=== PATIENT | female | born 1960 | race Hispanic/Latino ===

== ENCOUNTER 2018-12-11 21:45 | Emergency (ER) | payer SELFPAY ==
[2018-12-11] MEDS ORDERED: NITROGLYCERIN 0.4 MG 25 EA TAB SL PRN (22:03)
[2018-12-11] MEDS ORDERED: ASPIRIN (ENTERIC COATED) 81 MG TAB PO ONE (22:07)
[2018-12-11] MEDS ORDERED: ASPIRIN (CHEWABLE) 81 MG TAB ONE (22:08)
--- NOTE | 2018-12-11 22:08 | ED.PDOC ---
History of Present Illness - General Chief Complaint: Chest Pain/IA Stated Complaint: chest pain Time Seen by Provider: 12/11/18 21:51 - History of Present Illness Initial Comments: 58 Y/O FEMALE, C/O CP. STARTED TONIGHT APPROX 1999, WAS PICKING UP WEED, AND WHEN SHE STOOD UP FELT CP, MID STERNAL, CONSTANT, MODERATE, WORSE WITH BREATHING AND MOVEMENT. MADE HER A LITTLE NAUSEOUS. PAIN IS SL BETTER NOW. 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 DENIES SOB, FEVER, COUGH, ABD PAIN, N/V/D, PEDAL EDEMA. Allergies/Adverse Reactions: Allergies NO KNOWN ALLERGY Allergy (Verified 03/29/14 17:55) Home Medications: Ambulatory Orders Cetirizine HCl [Zyrtec] 10 mg PO DAILY 03/29/14 Levothyroxine Sodium [Synthroid] 0.125 mg PO 0700 03/29/14 Metoprolol Succinate [Metoprolol Succinate ER] 100 mg PO DAILY 03/29/14 Montelukast [Singulair] 10 mg PO DAILY 03/29/14 Aspirin [Aspirin Adult Low Dose] 81 mg PO DAILY 12/11/18 Meloxicam [Mobic] 15 mg PO DAILY 15 Days #15 tab 12/12/18 Review of Systems - Review of Systems Constitutional: Denies: chills, diaphoresis, fever EENTM: States: no symptoms reported Respiratory: States: no symptoms reported. Denies: cough, orthopnea, short of breath, stridor Cardiology: States: chest pain. Denies: edema, palpitations, syncope Gastrointestinal/Abdominal: States: nausea. Denies: abdominal pain, constipation, diarrhea, vomiting Genitourinary: States: no symptoms reported Musculoskeletal: States: no symptoms reported Skin: States: no symptoms reported Neurological: States: no symptoms reported Endocrine: States: no symptoms reported Past Medical History (General) - Patient Medical History Hx Seizures: No Hx Stroke: No Hx Dementia: No Hx Asthma: Yes Hx of COPD: No Hx Cardiac Disorders: No Hx Congestive Heart Failure: No Hx Pacemaker: No Hx Hypertension: Yes Hx Thyroid Disease: Yes Hx Diabetes: No Hx Gastroesophageal Reflux: No Hx Renal Disease: No Hx Cancer: No Hx of HIV: No Hx Hepatitis C: No Hx MRSA: No Hx Other - free text: HYPERLIPIDEMIA Surgical History: appendectomy, Hysterectomy - Vaccination History Hx Tetanus, Diphtheria Vaccination: No Hx Influenza Vaccination: No Hx Pneumococcal Vaccination: No - Social History Hx Tobacco Use: No Hx Chewing Tobacco Use: No Hx Alcohol Use: No Hx Substance Use: No Hx Substance Use Treatment: No Hx Depression: No Hx Physical Abuse: No Hx Emotional Abuse: No Hx Suspected Abuse: No - Female History Patient is a Female of Child Bearing Age (10 -59 yrs old): No Patient : No Family Medical History - Family History Mother Living Status: Still Living Hx Family Diabetes: Yes Hx Family;Other: CAD Grandparents Living Status: Hx Cardiac Disease: Yes Hx Family Cancer: Yes Physical Exam - Physical Exam General Appearance: Alert, Comfortable Eye Exam: bilateral normal - GEORGINA, EOMI Ears, Nose, Throat: normal ENT inspection, normal pharynx Respiratory: lungs clear, normal breath sounds, no respiratory distress, other - MID STERNAL TENDERNESS TO PALPATION THAT REPRODUCES CP Cardiovascular/Chest: normal peripheral pulses, regular rate, rhythm, no edema, no gallop, no JVD, no murmur Gastrointestinal/Abdominal: normal bowel sounds, non tender, soft, no organomegaly, no pulsatile mass Back Exam: normal inspection, no CVA tenderness Extremity: normal range of motion, non-tender, normal inspection, no pedal edema 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 TORADOL WAS GIVEN, PT FEELS MUCH BETTER. ADMISSION FOR OBSERVATION WAS OFFERED, EXPLAINED LIMITATIONS OF THE WORK UP DONE IN ER, PT WANTS TO GO HOME. WILL F/U WITH PCP. 12/12/18 00:41 12/11/18 22:03 Nitroglycerin 0.4 mg Tab [Nitrostat] 1 ea SL Q5MIN PRN 12/11/18 22:15 EKG STAT 12/12/18 00:37 CTA Chest [CT] Stat 12/12/18 01:00 Nitroglycerin/D5w IV 50,000 mcg Premix Bottle 1 bottle IVS PRN Laboratory Results - last 24 hr 12/11/18 12/11/18 12/11/18 22:14 22:14 22:14 WBC 9.6 RBC 5.02 Hgb 14.4 Hct 43.3 MCV 86.2 MCH 28.7 MCHC 33.3 RDW 12.9 Plt Count 223 MPV 8.5 Absolute Neuts (auto) 5.50 Absolute Lymphs (auto) 3.00 Absolute Monos (auto) 0.90 H Absolute Eos (auto) 0.30 Absolute Basos (auto) 0.00 Neutrophils % 56.6 Lymphocytes % 31.4 Monocytes % 8.8 Eosinophils % 2.7 Basophils % 0.5 D-Dimer, Quantitative 0.53 H* Sodium 141 Potassium 3.4 L Chloride 105 Carbon Dioxide 25 Anion Gap 14.4 BUN 20 H Creatinine 0.74 BUN/Creatinine Ratio 27.0 H Random Glucose 104 Serum Osmolality 284.2 Calcium 9.3 Total Bilirubin 0.7 AST 18 ALT 28 Alkaline Phosphatase 108 Creatine Kinase 84 CK-MB (CK-2) 1.1 CK-MB (CK-2) % Not Reportable Troponin I < 0.02 B-Natriuretic Peptide 15.5 Serum Total Protein 8.1 Albumin 4.5 Globulin 3.6 H Albumin/Globulin Ratio 1.3 - EKG/XRAY/CT Comments: NSR 71X', AQRS: 17, QTc 445, NO STT CHANGES. Xray Comments: CXR: NAF CT Interpretation Call Back: Yes - CTA CHEST: (+) SMALL HIATAL HERNIA, NO PE, NO DYSECTION. Departure - Departure Clinical Impression: Chest wall pain, Essential hypertension Disposition: Discharge to Home or Self Care Condition: Good Departure Forms: ED Discharge - Pt. Copy, Patient Portal Self Enrollment Instructions: DI for Chest Pain Diet: resume usual diet, low salt diet Prescriptions: Meloxicam [Mobic] 15 mg PO DAILY 15 Days #15 tab Home Medications: Ambulatory Orders Cetirizine HCl [Zyrtec] 10 mg PO DAILY 03/29/14 Levothyroxine Sodium [Synthroid] 0.125 mg PO 0700 03/29/14 Metoprolol Succinate [Metoprolol Succinate ER] 100 mg PO DAILY 03/29/14 Montelukast [Singulair] 10 mg PO DAILY 03/29/14 Aspirin [Aspirin Adult Low Dose] 81 mg PO DAILY 12/11/18 Meloxicam [Mobic] 15 mg PO DAILY 15 Days #15 tab 12/12/18
--- NOTE | 2018-12-11 22:27 | RAD ---
EXAM DESCRIPTION: Chest,1 View CLINICAL HISTORY: 58 years Female CHEST PAIN COMPARISON: None TECHNIQUE: AP view of the chest was obtained. FINDINGS: Cardiac size is within normal limits. Central vessels are not increased. No infiltrates or effusions seen. No consolidation. No pneumothorax. IMPRESSION: No active disease. Electronically signed by: Nelli Wiggins MD 12/11/2018 10:25 PM CDT
[2018-12-11] MEDS ORDERED: KETOROLAC TROMETHAMINE INJ 30 MG/ML VIAL IV ONE (22:56)
--- NOTE | 2018-12-11 23:42 | CT ---
EXAM DESCRIPTION: CTA Chest CLINICAL HISTORY: 58 years Female CHEST PAIN, ELEVATED D DIMER COMPARISON: Radiograph of the chest performed on the same day. TECHNIQUE: Images were obtained in axial, sagittal, and coronal planes. Coronal oblique images also obtained. Intravenous contrast was administered. This exam was performed according to our departmental dose-optimization program which includes use of Automated Exposure Control, adjustment of the mA and/or kV according to patient size and/or use of iterative reconstruction technique. FINDINGS: No filling defects pulmonary arteries bilaterally. No aortic dissection or dilatation. No adenopathy. No pericardial or pleural effusions. No adenopathy. No pneumothorax. No lung parenchymal infiltrates or nodules seen. No acute osseous abnormality. Moderate degenerative change thoracic spine. Small hiatal hernia. Surgical clips epigastric region and proximal stomach. Suspected fatty change involving the liver. IMPRESSION: No evidence for pulmonary embolus. No aortic dissection or dilatation. No infiltrate seen. Electronically signed by: Nelli Wiggins MD 12/11/2018 11:40 PM CDT
[2018-12-12] MEDS ORDERED: NITROGLYCERIN/D5W IV 50,000 MCG in PREMIX BOTTLE 1 BOTTLE IVS SCH (01:00)
[2018-12-12 01:15] VITALS: BP 125/65; TEMP 98.5; O2SAT 97
== END 2018-12-12 01:18 | disposition home or self-care (01) ==
LOC: ER 21:45
DX: R07.1 Chest pain on breathing (principal); I10 Essential (primary) hypertension; R11.0 Nausea; K44.9 Diaphragmatic hernia without obstruction or gangrene; J45.909 Unspecified asthma, uncomplicated; E07.9 Disorder of thyroid, unspecified; E78.5 Hyperlipidemia, unspecified
CPT/HCPCS: 36415; 71045; 71275; 80053; 82550; 82553; 83880; 84484; 85025; 85379; 93005; J1885

== ENCOUNTER 2020-09-05 22:45 | Emergency (ER) | payer BC, SELFPAY ==
[2020-09-05] MEDS ORDERED: ONDANSETRON INJ 4 MG/2 ML VIAL IV ONE (22:56)
[2020-09-05] MEDS ORDERED: SODIUM CHLORIDE 0.9% 1000ML 1,000 ML IVS ONE (22:56)
[2020-09-05] MEDS ORDERED: ALUM & MAG HYDROX-SIMETHICONE 30 ML, LIDOCAINE VISCOUS 2% 15 ML PO ONE ×2 (22:56)
--- NOTE | 2020-09-05 22:59 | ED.PDOC ---
History of Present Illness - General Time Seen by Provider: 09/05/20 22:46 Information Source: patient, RN notes reviewed, Vital Signs reviewed, old records Exam Limitations: no limitations - History of Present Illness Initial Comments: 60 yo F with hx HTN and HLD comes in with 4 days of abdominal discomfort, nausea and bloating. States symptoms seem worse at night. Did feel like a PPI helped on day one. States she is burping a lot. Pain got much worse tonight so came in for evaluation. no chest pain, shortness of breath. denies fever. no black orbloody bm. no diarrhea or constipation. Still has gallbladder. Prior abd surgeries include appendix and partial hysterectomy. Abdominal Pain Onset Location: RUQ, epigastric Pain Radiation: no radiation Quality: moderate, cramping Timing/Duration: days, intermittent Improving Factors: other - emesis Associated Symptoms: heartburn, nausea/vomiting Review of Systems - Review of Systems Constitutional: States: malaise. Denies: chills, fever EENTM: Denies: mouth pain Respiratory: Denies: cough, short of breath Cardiology: Denies: chest pain Gastrointestinal/Abdominal: States: abdominal pain, nausea. Denies: constipation, diarrhea Genitourinary: States: other - notice urine is darker than normal. . Denies: dysuria Musculoskeletal: Denies: back pain, muscle pain Skin: Denies: rash Neurological: Denies: numbness, paresthesia, weakness Endocrine: Denies: unexplained weight loss Past Medical History (General) - Patient Medical History Hx Seizures: No Hx Stroke: No Hx Dementia: No Hx Asthma: Yes Hx of COPD: No Hx Cardiac Disorders: No Hx Congestive Heart Failure: No Hx Pacemaker: No Hx Hypertension: Yes Hx Thyroid Disease: Yes Hx Diabetes: No Hx Gastroesophageal Reflux: No Hx Renal Disease: No Hx Cancer: No Hx of HIV: No Hx Hepatitis C: No Hx MRSA: No Surgical History: appendectomy, gastric bypass, other - partial hysterectomy - Vaccination History Hx Tetanus, Diphtheria Vaccination: No Hx Influenza Vaccination: No Hx Pneumococcal Vaccination: No - Social History Hx Tobacco Use: No Hx Chewing Tobacco Use: No Hx Alcohol Use: No Hx Substance Use: No Hx Substance Use Treatment: No Hx Depression: No Hx Physical Abuse: No Hx Emotional Abuse: No Hx Suspected Abuse: No - Female History Patient : No Family Medical History - Family History Mother Living Status: Still Living Hx Family Diabetes: Yes Hx Family;Other: CAD Grandparents Living Status: Hx Cardiac Disease: Yes Hx Family Cancer: Yes Physical Exam - Physical Exam General Appearance: Alert, Comfortable, No apparent distress, Well Developed, Well Groomed, Well Hydrated, Well Nourished Eyes, Ears, Nose, Throat Exam: normal ENT inspection Neck: non-tender, full range of motion, supple, normal inspection Respiratory: chest non-tender, lungs clear, normal breath sounds, no respiratory distress, no accessory muscle use Cardiovascular/Chest: normal peripheral pulses, regular rate, rhythm, no edema, no gallop, no JVD, no murmur Peripheral Pulses: 2+ Gastrointestinal/Abdominal: normal bowel sounds, soft, no organomegaly, no pulsatile mass, other - + muprhys. Rectal Exam: deferred Back Exam: normal inspection, no CVA tenderness, no vertebral tenderness Extremity: normal range of motion, non-tender, normal inspection, no pedal edema, no calf tenderness, normal capillary refill Neurologic: no motor/sensory deficits, alert, normal mood/affect, oriented x 3 Skin Exam: normal color, warm/dry Progress - Progress Progress: 09/05/20 22:59 patient given 1 L NS bolus, zofran and Gi cocktail. pain not improved. nausea improved. vss. partial ddx considered: gastric ulcer, gerd, gastirits, gallstones, pancreatitis, ovarian Ca. bedside US shows no stones, I do see sludge, gallbladder appears distended. CBD appears 4 mm. does have sonographic + murphys. delay in dispo took 60+ minutes to get CT scan. 09/06/20 00:24 patient given toradol only helped slightly, given fentanyl which did help with pain. given 1 L LR. 09/06/20 01:29 - Results/Orders Results/Orders: The data reviewed when caring for this patient included: nurse notes, prior records, etc. The history and assessments from nurses notes were reviewed and considered, and the patient's home medication list was also reviewed and considered. My assessment and the results of testing completed here in the ED were discussed with the patient/family. All questions were answered, and they express understanding of my assessment and the plan. patient transferred in stable condition. Connie Schultz DO #[id number] 09/05/20 23:00 EKG STAT 09/05/20 23:35 Hold Metformin x 48Hrs [id number] 09/06/20 00:42 RAPID SARS-CoV-2 RNA Stat 09/06/20 01:13 BOLUS Lactated Ringers [Lr] 1,000 ml IVS ONCE Laboratory Results WBC 8.0 K/mm3 (4.8-10.8) 09/05/20 23:05 RBC 4.92 M/mm3 (4.20-5.40) 09/05/20 23:05 Hgb 13.8 gm/dL (12.0-16.0) 09/05/20 23:05 Hct 41.9 % (36.0-47.0) 09/05/20 23:05 MCV 85.2 fl (81.0-99.0) 09/05/20 23:05 MCH 28.1 pg (27.0-31.0) 09/05/20 23:05 MCHC 33.0 g/dL (33.0-37.0) 09/05/20 23:05 RDW 13.3 % (11.5-14.5) 09/05/20 23:05 Plt Count 224 K/mm3 (130-400) 09/05/20 23:05 MPV 8.3 fl (7.40-10.4) 09/05/20 23:05 Absolute Neuts (auto) 5.90 K/uL (1.8-6.8) 09/05/20 23:05 Absolute Lymphs (auto) 1.20 K/uL (1.0-3.4) 09/05/20 23:05 Absolute Monos (auto) 0.60 K/uL (0.2-0.8) 09/05/20 23:05 Absolute Eos (auto) 0.20 K/uL (0.0-0.4) 09/05/20 23:05 Absolute Basos (auto) 0.00 K/uL (0.0-0.1) 09/05/20 23:05 Neutrophils % 74.3 % (42.0-78.0) 09/05/20 23:05 Lymphocytes % 15.5 % (20.0-50.0) L 09/05/20 23:05 Monocytes % 7.4 % (2.0-9.0) 09/05/20 23:05 Eosinophils % 2.2 % (1.0-5.0) 09/05/20 23:05 Basophils % 0.6 % (0.0-2.0) 09/05/20 23:05 Sodium 137 mmol/L (135-145) 09/05/20 23:05 Potassium 4.1 mmol/L (3.6-5.0) 09/05/20 23:05 Chloride 99 mmol/L (101-111) L 09/05/20 23:05 Carbon Dioxide 27 mmol/L (21-31) 09/05/20 23:05 Anion Gap 15.1 (12-18) 09/05/20 23:05 BUN 9 mg/dL (7-18) 09/05/20 23:05 Creatinine 0.44 mg/dL (0.6-1.3) L 09/05/20 23:05 BUN/Creatinine Ratio 20.5 (10-20) H 09/05/20 23:05 Random Glucose 125 mg/dL (70-105) H 09/05/20 23:05 Serum Osmolality 274.0 mOsm/L (275-295) L 09/05/20 23:05 Calcium 9.2 mg/dL (8.4-10.2) 09/05/20 23:05 Total Bilirubin 6.0 mg/dL (0.2-1.0) H* 09/05/20 23:05 AST 142 IU/L (10-42) H 09/05/20 23:05 ALT 356 IU/L (10-60) H 09/05/20 23:05 Alkaline Phosphatase 200 IU/L (42-121) H 09/05/20 23:05 Troponin I < 0.02 ng/mL (0.01-0.05) 09/05/20 23:05 Serum Total Protein 7.7 gm/dL (6.4-8.2) 09/05/20 23:05 Albumin 4.1 g/dl (3.2-5.5) 09/05/20 23:05 Globulin 3.6 gm/dL (2.3-3.5) H 09/05/20 23:05 Albumin/Globulin Ratio 1.1 (1.1-1.9) 09/05/20 23:05 Lipase 2277 U/L (22-51) H 09/05/20 23:05 Urine Color Dk yellow (Yellow) H 09/05/20 23:18 Urine Appearance Clear (Clear) 09/05/20 23:18 Urine pH 6.0 (4.5-7.8) 09/05/20 23:18 Ur Specific [place] 1.025 (1.005-1.030) 09/05/20 23:18 Urine Protein Trace mg/dL 09/05/20 23:18 Urine Glucose (UA) Negative mg/dL (Negative) 09/05/20 23:18 Urine Ketones >=160 mg/dL (NEGATIVE) 09/05/20 23:18 Urine Blood Trace-lysed (Negative) H 09/05/20 23:18 Urine Nitrite Negative 09/05/20 23:18 Urine Bilirubin Large (NEGATIVE) 09/05/20 23:18 Urine Urobilinogen 0.2 mg/dL (0.2-1.0) 09/05/20 23:18 Ur Leukocyte Esterase Negative (Negative) 09/05/20 23:18 Urine RBC 0-1 /hpf 09/05/20 23:18 Urine WBC 0-1 /hpf 09/05/20 23:18 Ur Epithelial Cells 10-20 /hpf 09/05/20 23:18 Urine Bacteria Rare 09/05/20 23:18 - EKG/XRAY/CT EKG: Jcarlos - hr 53, Sinus Comments: nsr, normal intervals, no acute ischemia. CT: abd/pelvis with contrast: no acute pathology per ct report. - Consult/PCP Time Called: 01:05 Consult/PCP: GI - LR, pain control, NPO - Additional EKG/XRAY/Consults Time Called: 01:00 Consult/PCP: hospitalist accepted for transfer. Departure - Departure Clinical Impression: Elevated bilirubin Pancreatitis due to biliary obstruction Qualifiers: Chronicity: acute Acute pancreatitis complication: no infection or necrosis Qualified Code(s): K85.10 - Biliary acute pancreatitis without necrosis or infection Disposition: Transfer to Hospital Diet: other - NPO Referrals: JULY ALBERTS [Primary Care Provider] - 1-5 Days Home Medications: Ambulatory Orders Cetirizine HCl [Zyrtec] 10 mg PO DAILY 03/29/14 Levothyroxine Sodium [Synthroid] 0.125 mg PO 0700 03/29/14 Metoprolol Succinate [Metoprolol Succinate ER] 100 mg PO DAILY 03/29/14 Montelukast [Singulair] 10 mg PO DAILY 03/29/14 Aspirin [Aspirin Adult Low Dose] 81 mg PO DAILY 12/11/18 Meloxicam [Mobic] 15 mg PO DAILY 15 Days #15 tab 12/12/18 Transfer to Outside Facility - Transfer Information Decision to Transfer Date: 09/05/20 Decision to Transfer Time: 23:52 Reason for Transfer: required specialist not available Accepting Facility: [facility]
[2020-09-05] MEDS ORDERED: KETOROLAC TROMETHAMINE INJ 30 MG/ML VIAL IV ONE (23:39)
[2020-09-06] MEDS ORDERED: fentaNYL CITRATE INJ 50 MCG/ML 2 ML AMP IV ONE ×2 (00:20→02:10)
--- NOTE | 2020-09-06 00:57 | CT ---
EXAM: CT abdomen and pelvis with contrast. INDICATION: Abdominal pain, acute. TECHNIQUE: Contiguous axial CT images of the abdomen and pelvis. Intravenous contrast: Present. Oral contrast: Absent. DLP 1363 mGy-cm. This exam was performed according to our departmental dose-optimization program, which includes automated exposure control, adjustment of the mA and/or kV according to patient size and/or use of iterative reconstruction technique. COMPARISON: None. FINDINGS: Lower chest: Partially imaged. Lung bases: Unremarkable. Cardiac apex: Unremarkable. Solid abdominal viscera: Liver: Unremarkable. Gallbladder: Unremarkable. Pancreas: Unremarkable. Spleen: Unremarkable. Adrenal glands: Unremarkable. Right kidney: No hydronephrosis. Left kidney: No hydronephrosis. Urinary bladder: Unremarkable. Abdominal aorta: Mild atherosclerotic calcifications. Peritoneal: Free fluid: None. Free air: None. Other: No pathologic sized lymph nodes in the upper abdomen. Bowel: Stomach: Small hiatal hernia. Changes of a gastric sleeve Small bowel: Unremarkable. Appendix: Not uniquely identified. Colon: Scattered diverticula without evidence of diverticulitis. Rectum: Unremarkable. Uterus: Hysterectomy Bones: Unremarkable. IMPRESSION: 1. No CT evidence of acute process of the abdomen. 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
[2020-09-06] MEDS ORDERED: LACTATED RINGERS 1,000 ML IVS ONE (01:13)
[2020-09-06 02:24] VITALS: BP 146/73; TEMP 98.1; O2SAT 98
== END 2020-09-06 02:25 | disposition short-term general hospital (02) ==
LOC: ER 22:45
DX: K85.10 Biliary acute pancreatitis without necrosis or infection (principal); E80.7 Disorder of bilirubin metabolism, unspecified; K82.9 Disease of gallbladder, unspecified; R00.1 Bradycardia, unspecified; I10 Essential (primary) hypertension; E78.00 Pure hypercholesterolemia, unspecified; E07.9 Disorder of thyroid, unspecified; J45.909 Unspecified asthma, uncomplicated; Z90.49 Acquired absence of other specified parts of digestive tract; Z90.710 Acquired absence of both cervix and uterus; Z98.84 Bariatric surgery status; Z79.82 Long term (current) use of aspirin; Z79.899 Other long term (current) drug therapy
CPT/HCPCS: 74177; 80053; 81001; 83690; 84484; 85025; 87635; 93005; J1885; J2405; J3010; J7030; J7120